=== PATIENT | female | born 1990 | race Caucasian/White ===

== ENCOUNTER 2017-12-09 18:28 | Emergency (ER) | payer BC ==
[~2017-12-09] VITALS: Ht 152.4 cm; Wt 86.2 kg
[~2017-12-09 18:28] MED LIST: ANTIVERT25 MG PO; BIRTH CONTROL PILL; BIRTH CONTROL PO; CHERATUSSIN AC118 ML PO; DEXILANT60 MG PO; FLEXERIL PO; LUTERA1 EACH PO; MEDROLDOSEPACK PO; MOBIC7.5 MG PO; NEXIUM40 MG PO; NORCO 5-325 TA1 EACH PO; OMEPRAZOLE20 MG PO; OMEPRAZOLE40 MG PO; PEPCID20 MG PO; PHENERGAN 25 MG25 M1 PO; PRILOSEC 20 MG20 MG PO; TESSALON PERLE100 MG PO; TOPAMAX50 MG PO; TRAMADOL 50 MG50 MG PO; ULTRAM 50MG TAB50 MG PO; VALIUM5 MG PO; ZOFRAN ODT4 MG PO
[2017-12-09] MEDS ORDERED: COLESTIPOL HCL1 G1 PO (18:49)
[2017-12-09] MEDS ORDERED: PROTONIX40 M1 PO (18:49)
[2017-12-09] MEDS ORDERED: CYCLOBENZAPRINE10 MG PO (20:31)
[2017-12-09 21:22] VITALS: BP 116/78
[2017-12-10] MEDS ORDERED: BUTALB-APAP-CA1 EACH PO (20:33)
== END 2017-12-09 21:23 | disposition home or self-care (01) ==
LOC: M.ERS 18:28
DX: R51 Headache (principal); K21.9 Gastro-esophageal reflux disease without esophagitis; Z90.49 Acquired absence of other specified parts of digestive tract; V49.49XA Driver injured in collision with other motor vehicles in traffic accident, initial encounter; Y93.89 Activity, other specified; Y92.89 Other specified places as the place of occurrence of the external cause; Y99.8 Other external cause status

== ENCOUNTER 2017-12-10 19:28 | Emergency (ER) | payer BC ==
[~2017-12-10] VITALS: Ht 152.4 cm; Wt 86.2 kg
[~2017-12-10 19:28] MED LIST changes: +COLESTIPOL HCL1 G1 PO; +CYCLOBENZAPRINE10 MG PO; +PROTONIX40 M1 PO
[2017-12-10] MEDS ORDERED: BUTALB-APAP-CA1 EACH PO (20:33)
[2017-12-10 20:54] VITALS: BP 112/71
== END 2017-12-10 20:55 | disposition home or self-care (01) ==
LOC: M.ERS 19:28
DX: R51 Headache (principal); K21.9 Gastro-esophageal reflux disease without esophagitis; Z90.49 Acquired absence of other specified parts of digestive tract